=== PATIENT | female | born 1985 | race Caucasian/White ===

== ENCOUNTER 2021-01-07 11:37 | Emergency (ER) | payer OTHER ==
[~2021-01-07] VITALS: Ht 167.6 cm; Wt 61.2 kg
[2021-01-07 12:08] LABS: ABSOLUTE NEUTROPHILS 6.6 thou/uL (1.4-8.2); BASOPHILS 0.4 % (0.0-2.0); HEMOGLOBIN 14.5 gm/dL (12.0-15.0); LYMPHOCYTES 17.2 % (24.0-44.0); MCH 31.1 pg (26.0-34.0); MCHC 33.7 g/dL (28.0-37.0); MCV 92.2 fL (80.0-100.0); MONOCYTES 3.2 % (1.0-8.0); PLATELET COUNT 271 thou/uL (150-400); POLYS 79.2 % (36.0-66.0); RBC 4.67 mil/uL (4.20-5.00); RDW 12.5 % (10.5-14.5); WBC 8.4 thou/uL (4.0-11.0)
[2021-01-07 12:16] LABS: CALCIUM 8.9 mg/dL (8.5-10.1); CREATININE 0.8 mg/dL (0.6-1.0)
[2021-01-07 12:24] LABS: ALBUMIN 4.4 g/dL (3.4-5.0); TOTAL BILIRUBIN 0.8 mg/dL (0.2-1.0); TOTAL PROTEIN 7.5 g/dL (6.4-8.2)
[2021-01-07 12:39] LABS: MAGNESIUM 2.1 mg/dL (1.8-2.4); TROPONIN-I <0.06 ng/mL (<0.06)
[2021-01-07 13:59] LABS: URINE BILIRUBIN NEGATIVE (Negative); URINE BLOOD NEGATIVE (Negative); URINE CLARITY CLEAR; URINE COLOR YELLOW; URINE GLUCOSE-RANDOM* NEGATIVE (Negative); URINE KETONES TRACE (Negative); URINE LEUKOCYTES-REFLEX NEGATIVE (Negative); URINE NITRITE-REFLEX NEGATIVE (Negative); URINE PROTEIN (DIPSTICK) NEGATIVE (Negative); URINE SPECIFIC GRAVITY <= 1.005 (1.005-1.035); URINE UROBILINOGEN 0.2 E.U./dl (0.2-1.0)
[2021-01-07] MEDS ORDERED: ONDANSETRON HCL4 M2 PO (14:35)
[2021-01-07] MEDS ORDERED: VALIUM2 MG PO (14:35)
[2021-01-07] MEDS ORDERED: MOTION RELIEF25 MG PO (14:35)
[2021-01-07 14:54] VITALS: BP 100/57
--- NOTE | 2021-01-07 16:35 | EKG ---
[address] [address] ELECTROCARDIOGRAM REPORT Name: TRISTAN HURTADO 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
== END 2021-01-07 14:55 | disposition home or self-care (01) ==
LOC: ER 11:37
PROVIDERS: Physician Assistant
DX: R42 Dizziness and giddiness (principal); R11.2 Nausea with vomiting, unspecified; G43.909 Migraine, unspecified, not intractable, without status migrainosus

== ENCOUNTER → 2021-07-17 | Outpatient (CLI) | payer OTHER ==
[~2021-07-17] MED LIST: FISH OIL 1,001000 M2 PO; IBUPROFEN 600600 M1 PO; MAGNESIUM250 M1 PO; MOTION RELIEF25 MG PO; NORCO5 PO; ONDANSETRON HCL4 M2 PO; OYSTER SHELL C500 MG PO; PNV 29-1 TABLE1 EACH PO; PROBIOTIC1 EAC7 PO; VALIUM2 MG PO; VITAMIN D325 MC3 PO
== END ==
LOC: ULTRA 14:28 → LAB 14:28
PROVIDERS: ATTEND Obstetrics & Gynecology
DX: Z34.90 Encounter for supervision of normal pregnancy, unspecified, unspecified trimester (principal)

== ENCOUNTER 2021-07-21 11:25 | Day surgery (SDC) | payer OTHER ==
[~2021-07-21] VITALS: Ht 167.6 cm; Wt 64.4 kg
[~2021-07-21 11:25] MED LIST changes: -IBUPROFEN 600600 M1 PO; -NORCO5 PO
[2021-07-21 12:00] VITALS: BP 106/65
[2021-07-21 12:24] LABS: HEMATOCRIT 35.7 % (37.0-47.0); HEMOGLOBIN 12.6 gm/dL (12.0-15.0)
[2021-07-21] MEDS ORDERED: IBUPROFEN 600600 M1 PO (14:37)
[2021-07-21] MEDS ORDERED: NORCO5 PO (14:37)
[2021-07-21 15:00] VITALS: BP 106/65
--- NOTE | 2021-07-23 18:06 | PATH ---
[facility] [address] [place] [address] PATHOLOGY RPT PROCEDURE Name: RUBY RAYMUNDO DEANDRA Room #: DEP [facility] M.R.#: [id number] Admission: 07/21/21 Date of : 87 Discharge: 07/21/21 Report #: [id number] Path Case #: [id number] [facility] Accession Number: [id number] . 01 Material submitted: . product of conception - PRODUCTS OF CONCEPTION . 01 Clinician provided ICD-10: y . 01 Clinical history: . SUCTION D AND C BLIGHTED OVUM . 02 Diagnosis: Products of conception: - Markedly hydropic immature chorionic villi, membranes, fragments of decidua as well as scant fragments of endometrium, consistent with products of conception. (IUV:pit; 07/23/2021) QTP 07/23/2021 [facility]3 Local . 02 Electronically signed: . Yissel Hernandez MD, Pathologist NPI- [id number] . 01 Gross description: . The specimen is received in formalin, labeled "Ruby Raymundo, products of conception". Received are multiple segments of light galicia to pink-williamson tissue admixed with blood coagulum and villiform tissue measuring 5.9 x 5.9 x 1.0 cm in aggregate dimensions. or embryonic tissue is not grossly identified. Vesicular structures are absent. The specimen is submitted representatively in cassettes A1 through A3. (CAA; 07/22/2021) QAC/QAC 07/22/2021 1146 Local . 02 Pathologist provided ICD-10: O02.0 . 02 CPT . 088285 Specimen Comment: A courtesy copy of this report has been sent to [phone] Specimen Comment: [phone] Specimen Comment: Report sent to / DR COOK Performed at: [address] [address] PATHOLOGY RPT PROCEDURE Name: RUBY RAYMUNDO Room #: DEP [facility]#: [id number] Admission: 07/21/21 Date of : 87 Discharge: 07/21/21 Report #: [id number] Path Case #: [id number] [address] [id number] MD Agapito Weinstein MD Phone: [phone] Performed at: [address] [facility] [address] [id number] MD Yissel Hernandez MD Phone: [phone]
--- NOTE | 2021-08-06 08:04 | O ---
[facility] [place] [address] OPERATIVE REPORT Name: TRISTAN HURTADO Room #: DEP [facility]#: [id number] Admission: 07/21/21 Attend Phys: Camila Beckman DO Discharge: 07/21/21 Date of : 87 Report #: [id number] THIS REPORT FOR: cc: Masha Pineda. Masha Peña. Camila Franks DO ~ DATE OF SERVICE: 07/21/2021 PREOPERATIVE DIAGNOSIS: Blighted ovum. POSTOPERATIVE DIAGNOSIS: Blighted ovum. OPERATIVE PROCEDURE: Suction, dilatation and curettage. SURGEON: Camila Beckman DO ANESTHESIA: General. INTRAVENOUS FLUIDS: 500 mL. URINE OUTPUT: 100 mL. ESTIMATED BLOOD LOSS: 300 mL. COMPLICATIONS: None. PATHOLOGY: Products of conception. DESCRIPTION OF PROCEDURE: The patient was taken to the operating room, where general anesthesia was administered and found to be adequate. She was then prepped and draped in normal sterile fashion in dorsal lithotomy position. A weighted speculum was placed in the patient's vagina. The anterior lip of the cervix was identified and grasped with a single-tooth tenaculum. The cervix was then gently dilated with graduated Hegar dilators. The uterus was then gently sounded to approximately 12 cm. A #8 curved suction curette was then passed through the cervix, gently advanced into the uterus and suction curettage was performed circumferentially. The suction curette was removed. Sharp curettage was performed until a gritty texture was noted. Once this was performed, the curette was removed and further suction curettage was performed until no further products of conception could be seen and evacuated. Due to some slight brisk bleeding at the end of the procedure, Methergine was placed intramuscularly per my order and anesthesia was administered gently and bimanual massage. Hemostasis was achieved. The single-tooth tenaculum was then removed from the patient's cervix. The weighted speculum was removed from the patient's vagina. The patient tolerated the procedure well. Sponge, lap and needle counts were [facility] [address] [place] [address] OPERATIVE REPORT Name: TRISTAN HURTADO [facility] Room #: DEP [facility]..#: [id number] Admission: 07/21/21 Attend Phys: Camila Beckman DO Discharge: 07/21/21 Date of : 87 Report #: [id number] reported as correct and the patient was taken to the recovery room in stable condition. <ELECTRONICALLY SIGNED> By: Camila Beckman DO 08/06/21 0804 1440 1457 Camila Beckman DO /nt
== END 2021-07-21 15:28 | disposition home or self-care (01) ==
LOC: OR 11:25 → TBA 12:00 → OR 12:53
PROVIDERS: ATTEND Obstetrics & Gynecology
DX: O02.0 Blighted ovum and nonhydatidiform mole (principal); G43.909 Migraine, unspecified, not intractable, without status migrainosus; Z98.890 Other specified postprocedural states; Z79.899 Other long term (current) drug therapy; Z20.822 Contact with and (suspected) exposure to COVID-19
CPT/HCPCS: 50010; 50101; 62110; 62900; 70005